=== PATIENT | female | born 1975 | race Two or more races ===

== ENCOUNTER 2017-08-14 17:05 | Emergency (ER) | payer MEDICAID ==
[2017-08-14] MEDS ORDERED: AMOXICILLIN/CLAVULANATE POT 875/125 MG TAB PO ONE (17:37)
--- NOTE | 2017-08-14 17:40 | EDPHY ---
H & P Time Seen by Provider: 08/14/17 17:28 HPI/ROS: CHIEF COMPLAINT: Cat bite HISTORY OF PRESENT ILLNESS: The patient is a 41-year-old female who comes to the emergency department complaining of a cat bite to her right index finger. She states that she was trying to train the cat and had meat on her finger. He she has a small puncture wound to the center of the dorsal surface of her finger and to the ulnar aspect on the palmar aspect of the finger. This happened about 24 hours ago. She has mild swelling at the area. No warmth or erythema. REVIEW OF SYSTEMS: Constitutional: denies: chills, fever, recent illness, recent injury EENTM: denies: blurred vision, double vision, nose congestion Respiratory: denies: cough, shortness of breath Cardiac: denies: chest pain, irregular heart rate, lightheadedness, palpitations Gastrointestinal/Abdominal: denies: abdominal pain, diarrhea, nausea, vomiting, blood streaked stools Genitourinary: denies: dysuria, frequency, hematuria, pain Musculoskeletal: denies: joint pain, muscle pain Skin: See above Neurological: denies: headache, numbness, paresthesia, tingling, dizziness, weakness Hematologic/Lymphatic: denies: blood clots, easy bleeding, easy bruising Immunologic/allergic: denies: HIV/AIDS, transplant EXAM: GENERAL: Well-appearing, well-nourished and in no acute distress. HEAD: Atraumatic, normocephalic. EYES: Pupils equal round and reactive to light, extraocular movements intact, sclera anicteric, conjunctiva are normal. ENT: TMs normal, nares patent, oropharynx clear without exudates. Moist mucous membranes. NECK: Normal range of motion, supple without lymphadenopathy or JVD. LUNGS: Breath sounds clear to auscultation bilaterally and equal. No wheezes rales or rhonchi. HEART: Regular rate and rhythm without murmurs, rubs or gallops. ABDOMEN: Soft, nontender, normoactive bowel sounds. No guarding, no rebound. No masses appreciated. BACK: No CVA tenderness, no spinal tenderness, step-offs or deformities EXTREMITIES: Normal range of motion, no pitting or edema. No clubbing or cyanosis. NEUROLOGICAL: Cranial nerves II through XII grossly intact. Normal speech, normal gait. 5/5 strength, normal movement in all extremities, normal sensation PSYCH: Normal mood, normal affect. SKIN: Cat bite , see above. Source: Patient Exam Limitations: No limitations - Medical/Surgical History Hx Asthma: No Hx Chronic Respiratory Disease: No Hx Diabetes: No Hx Cardiac Disease: No Hx Renal Disease: No Hx Cirrhosis: No - Family History Significant Family History: No pertinent family hx - Social History Smoking Status: Never smoked Alcohol Use: Sober Drug Use: None Constitutional: Initial Vital Signs Temperature (C) 36.5 C 08/14/17 17:41 Heart Rate 68 08/14/17 17:41 Respiratory Rate 16 08/14/17 17:41 Blood Pressure 94/59 L 08/14/17 17:41 O2 Sat (%) 96 08/14/17 17:41 O2 Delivery Mode Room Air Allergies/Adverse Reactions: No Known Allergies Allergy (Unverified 08/14/17 17:34) Home Medications: Medication Instructions Recorded Amoxicillin/Clavulanate Pot 875 mg PO BID #14 tab 08/14/17 [Augmentin 875Mg] Medical Decision Making ED Course/Re-evaluation: I will treat the patient with Augmentin. She does appear to have an early infection. I do not think it involved the joint or tendon. I will have her follow up with Hand surgery just in case. I advised her to return here in 48 hours of her symptoms are not improving. Differential Diagnosis: Partial list of the Differential diagnosis considered include but were not limited to; cat bite, foreign body, and although unlikely based on the history and physical exam, I also considered joint infection, tendon infection, fracture. I discussed these differential diagnoses and the plan with the patient as well as the usual and expected course. The patient understands that the diagnosis is provisional and that in medicine we are not always correct and that further workup is often warranted. Usual and customary warnings were given. All of the patient's questions were answered. The patient was instructed to return to the emergency department should the symptoms at all worsen or return, otherwise to followup with the physician as we discussed. - Data Points Medications Given: Discontinued Medications Amoxicillin/Clavulanate Potassium (Augmentin 875mg) 875 mg PO EDNOW ONE PRN Reason: Protocol Stop: 08/14/17 17:38 Last Admin: 08/14/17 17:50 Dose: 875 mg Departure - Departure Disposition: Home, Routine, Self-Care Clinical Impression: Cat bite of index finger Qualifiers: Encounter type: initial encounter Qualified Code(s): S61.258A - Open bite of other finger without damage to nail, initial encounter Condition: Fair Instructions: Animal Bite (ED) Additional Instructions: Return in 48 hours if her symptoms are not improving. Follow up with Hand surgery as discussed. Referrals: ISAIAS PACHECO,. [Primary Care Provider] - As per Instructions Rupinder Morales MD [Medical Doctor] - As per Instructions Prescriptions: Amoxicillin/Clavulanate Pot [Augmentin 875Mg] 875 mg PO BID #14 tab
[2017-08-14 18:11] VITALS: BP 122/62; PULSE 74; RESP 18; TEMP 98; O2SAT 97
== END 2017-08-14 18:09 | disposition home or self-care (01) ==
LOC: CED 17:05
DX: S61.250A Open bite of right index finger without damage to nail, initial encounter (principal); W55.01XA Bitten by cat, initial encounter